=== PATIENT | male | born 1980 | race Caucasian/White ===

== ENCOUNTER 2021-06-24 16:37 | Emergency (ER) | payer SELFPAY ==
[2021-06-24 16:38] VITALS: BP 162/94; PULSE 77; RESP 14; TEMP 36.9; O2SAT 98; BMI 27.4
[2021-06-24] MEDS: oxyCODONE 5 MG Tablet PO (17:35)
--- NOTE | 2021-06-24 17:35 | RAD_ITS ---
STUDY: X-RAY - RIGHT ELBOW REASON FOR EXAM: Male, 41 years old. injury, pain TECHNIQUE: 4 view(s) of the elbow. COMPARISON: None. FINDINGS: An acute linear fracture is present across the mid aspect of the radial head without displacement. The fat pads of the joint space are elevated due to the presence of joint fluid. No additional fractures are seen. Normal visualized humerus and ulna. Normal radiocapitellar and ulnotrochlear articulations. The soft tissue structures are unremarkable. RAD/Elbow min 3 Views IMPRESSION: 1. Acute nondisplaced linear fracture through the mid aspect of the radial head Electronically Signed: Yoshi Calabrese MD at 18:26 EST ,
--- NOTE | 2021-06-24 17:38 | EX.ED.UPPERE ---
HPI History of Present Illness Chief Complaint: Upper Extremity Injury Informant: patient Occured/Mechanism Mechanism/Context: Yes fall Onset/Context/Timing Onset: Yesterday Context: Sudden Onset Timing: Continuous Quality of Pain: Aching Location: Right elbow Current Severity: Severe Maximum Severity: Severe Associated Symptoms Associated Symptoms: Positive for Parasthesia (All fingers) and Loss of Funtion; Negative for Weakness Narrative Narrative: Patient accidentally fell out of a hayloft yesterday falling about 8 feet after missing the ladder with his feet. He was seen at [facility], diagnosed with a right arm injury, after getting shoulder and elbow x-rays that he brought with him. He was put in a long-arm splint and given Tylenol and he states that the pain is severe and he needs something stronger. He is tingling in all of his fingers. He unwrapped the splint, which took the tingling away, but he rewrapped it himself and now it is tingling again. [id number]. No other injuries. PFSH PFSH Medical History no medical history no medical history Home Medications oxycodone-acetaminophen 1 tab PO Q4H PRN 3 Days #18 tablet 06/24/21 [Rx Last Taken Unknown] Allergy/AdvReac Type Severity Reaction Status Date / Time No Known Allergies Allergy Verified 06/24/21 16:38 Social History Smoking Status: Never smoker ROS ROS ED Constitutional Constitutional ED: Denies chills or fever(s) Musculoskeletal Musculoskeletal: Reports extremity pain; Denies neck pain Integumentary Denies Abrasions, rash or wounds Neurologic Neurologic: Reports as per HPI and paresthesias; Denies weakness EXAM Physical Exam Const Vital Signs: 06/24/21 16:38 Temperature 98.5 F Temperature Source Temporal Pulse Rate 77 Respiratory Rate 14 Blood Pressure 162/94 H Blood Pressure Mean 116 Pulse Ox 98 Oxygen Delivery Method Room Air Positive well nourished and well developed General Appearance ED: well developed and NAD Neck full ROM and supple Back/Spine normal ROM and normal to inspection Extremity Extremity Narrative: Patient presents in a sling, long-arm posterior splint with a lot of padding. After taking this down, he has a very swollen right elbow, skin is intact. Very tender at the medial epicondyle and the olecranon without any significant lateral elbow bony tenderness. Very limited range of motion due to pain, he was splinted beyond 90 degrees, he was able to bend his elbow to 90. Tingling improved after I released the padding and splint. Able to move his fingers without difficulty, nontender at the wrist and proximal to the elbow. Neuro oriented x3 and no focal motor deficits Neuro Narrative: Sensation grossly intact all fingers, with paresthesias in all fingers. Brisk cap refill strong radial pulse. This is prior to taking his splint down. Sensorium / Orientation: alert Psych mental status grossly normal and thought process normal Skin no wounds Rashes: no rashes MDM MDM MDM Narrative Medical decision making narrative: I did review the x-rays he had evaluation facility, there is no report with it. It looks like a radial head fracture, large anterior fat pad. I obtained my own x-rays because they were difficult to interpret in the lateral did not look perfect. Our x-rays are also consistent with a intra-articular radial head fracture. I reevaluated patient he is very tender at the wrist as well and has trouble moving it due to wrist pain, not elbow. I obtained wrist films. On my interpretation 3 views of the wrist appear unremarkable. I will give him a wrist splint, Velcro prefabricated for what is likely a sprain there, and he can use just the sling for the radial head fracture. I discussed this with Dr. Reyes, he was in agreement and will see him in follow-up if the patient does not want a follow-up with the [facility] physicians he was referred to. Discharge Plan Triage Chief Complaint: Upper Extremity Injury ED Provider: Loc De Los Santos Dx/Rx/DC Orders Clinical Impression: Closed fracture of head of right radius, Right wrist sprain, Fall from height of greater than 3 feet Instructions: ED Radial Head Fracture, ED Wrist Sprain Prescriptions: New oxycodone-acetaminophen [oxycodone-acetaminophen] 1 TABLET tablet 1 tab PO Q4H PRN (Reason: Pain) 3 Days Qty: 18 RF: 0 Primary Care Provider: Care Physician,No Primary Referrals: Ki Reyes DO [STAFF PHYSICIAN] - 3-5 Days Care Physician,No Primary [Primary Care Provider] - Disposition Disposition: Home, Self Care
--- NOTE | 2021-06-24 18:22 | RAD_ITS ---
STUDY: X-RAY - RIGHT WRIST REASON FOR EXAM: Male, 41 years old. RT ARM PAIN FROM FALL YESTERDAY. fall, injury TECHNIQUE: 3 view(s) of the wrist were obtained. COMPARISON: None. FINDINGS: Normal visualized distal radius and ulna. Normal radiocarpal articulation. Normal distal radioulnar articulation. Normal carpal bones. Normal carpal articulations. Normal carpometacarpal articulation of the thumb. Normal second through fifth carpometacarpal articulations. Normal visualized metacarpal bones. The soft tissue structures are unremarkable. There is no demonstrated acute fracture. RAD/Wrist min 3 Views IMPRESSION: Normal x-ray examination of the wrist. Electronically Signed: Yoshi Calabrese MD at 18:53 EST Reading Location ID and State: [facility] / [place] , Service support ,
== END 2021-06-24 19:04 | disposition home or self-care (01) ==
PROVIDERS: Emergency Provider Emergency Medicine; Visit Provider Emergency Medicine
DX: S52.126A Nondisplaced fracture of head of unspecified radius, initial encounter for closed fracture (principal); S52.301A Unspecified fracture of shaft of right radius, initial encounter for closed fracture; W17.89XA Other fall from one level to another, initial encounter
CPT/HCPCS: 73080; 73110; 99283